=== PATIENT | female | born 1985 | race Two or more races ===

== ENCOUNTER 2024-05-18 09:48 | Outpatient (CLI) | payer OTHER | END 2024-05-18 09:51 | disposition home or self-care (01) | LOC: SONOGRAMA 09:48 | PROVIDERS: ATTEND Pathology Anatomic Pathology & Clinical Pathology | DX: C73 Malignant neoplasm of thyroid gland (principal); D34 Benign neoplasm of thyroid gland; E07.89 Other specified disorders of thyroid; E04.2 Nontoxic multinodular goiter ==

== ENCOUNTER 2024-08-11 07:30 | Inpatient (IN) | payer OTHER ==
[~2024-08-11] VITALS: Ht 175.3 cm; Wt 63.0 kg
[2024-08-11] MEDS ORDERED: TEGRETOL200 MG PO (09:08)
[2024-08-11] MEDS ORDERED: METHIMAZOLE PO (09:12)
[2024-08-11] MEDS ORDERED: HORIZANT300 MG PO (09:12)
[2024-08-11] MEDS ORDERED: MOTRIN IB200 M1 PO (09:12)
[2024-08-11] MEDS ORDERED: D3-501250 MCG PO (09:13)
[2024-08-11 09:42] LABS: HEMATOCRIT 39.8 % (36.0-45.00); HEMOGLOBIN 13.4 g/dL (12.0-15.00); MEAN CORPUSCULAR HGB CONC 33.6 g/dl (32.0-36.0); PLATELET COUNT 228 K/uL (150-450); RED BLOOD COUNT 4.32 M/uL (4.00-6.00); RED CELL DISTRIBUTION WIDTH 13.4 % (11.5-14.5)
[2024-08-11 09:44] LABS: PH,URINE 5.5 (5.0-8.0); URINE APPEARANCE Clear; URINE BILIRRUBIN Negative (NEGATIVE); URINE BLOOD Negative; URINE COLOR Yellow; URINE GLUCOSE Negative (NEGATIVE); URINE KETONE Negative (NEGATIVE); URINE LEUKOCYTE Negative; URINE NITRATE Negative; URINE PROTEIN Negative (NEGATIVE); URINE UROBILINOGEN 0.2 E.U./dl
[2024-08-11 09:49] LABS: URINE BACTERIA 5067.4 uL (0.0-1933); URINE EPITHELIAL CELLS 28.9 uL (0.0-38.8); URINE RBC 14.8 uL (0.0-20.8); URINE WBC 13.1 uL (0.0-23.2)
[2024-08-11 10:17] LABS: INR 1.11; PARTIAL THROMBOPLASTIN TIME 29.6 SECONDS (22.0-34.0)
[2024-08-11 10:28] LABS: ALBUMIN 3.9 gm/dL (3.4-5.0); BILIRUBIN TOTAL 0.29 mg/dL (0.3-1.2); CALCIUM 9.1 mg/dL (8.5-10.1); CREATININE SERUM 0.63 mg/dL (0.55-1.02); GFR 104.66; POTASSIUM 3.94 mEq/L (3.5-5.1); TOTAL PROTEIN 6.9 gm/dL (6.4-8.2)
[2024-08-17] MEDS ORDERED: DEXAMETHASONE SODIUM PHOSPHATE 4 MG/ML VIAL IV ONE (14:00)
[2024-08-17] MEDS ORDERED: CEFAZOLIN SODIUM 1,000 MG VIAL IV ONE (14:00)
[2024-08-17] MEDS ORDERED: ONDANSETRON HCL 2 MG/ML VIAL IV PRN (15:00)
[2024-08-17] MEDS ORDERED: ENALAPRILAT DIHYDRATE 1.25 MG/ML VIAL IV PRN (15:00)
[2024-08-17] MEDS ORDERED: MORPHINE SULFATE 4 MG/ML VIAL IV ONE ×2 (15:15→15:45)
[2024-08-17] MEDS ORDERED: CYCLOBENZAPRINE HCL 5 MG TABLET PO SCH (17:00)
[2024-08-17] MEDS ORDERED: TRAMADOL HCL 50 MG TABLET PO SCH (17:00)
[2024-08-17] MEDS ORDERED: GABAPENTIN 300 MG CAPSULE PO SCH (17:00)
[2024-08-17] MEDS ORDERED: ACETAMINOPHEN 500 MG GEL..CAP PO SCH (17:00)
[2024-08-17] MEDS ORDERED: PANTOPRAZOLE SODIUM 40 MG/VIAL VIAL IV PUSH SCH (21:00)
[2024-08-17 22:22] VITALS: BP 130/69; O2SAT 97
[2024-08-18 00:44] VITALS: BP 122/65; O2SAT 95
[2024-08-18] MEDS ORDERED: MORPHINE SULFATE 4 MG/ML VIAL IV PRN (01:45)
[2024-08-18] MEDS ORDERED: CARBAMAZEPINE 200 MG TABLET PO SCH (09:00)
[2024-08-18 10:36] VITALS: BP 116/72; O2SAT 98
== END 2024-08-18 13:26 | disposition home or self-care (01) | DRG 627 ==
LOC: O/R 08-17 07:10 → SURH 08-17 07:30
PROVIDERS: ADMIT Otolaryngology; ATTEND Otolaryngology
PROC: 0GTH0ZZ Resection of Right Thyroid Gland Lobe, Open Approach (ICD-10-PCS; principal; 2024-08-17 11:00)
DX: C73 Malignant neoplasm of thyroid gland (principal); Z20.822 Contact with and (suspected) exposure to COVID-19

== ENCOUNTER 2024-08-17 09:44 | Outpatient (CLI) | payer OTHER ==
[~2024-08-17 09:44] MED LIST: D3-501250 MCG PO; HORIZANT300 MG PO; METHIMAZOLE PO; MOTRIN IB200 M1 PO; TEGRETOL200 MG PO
[2024-08-17 10:58] LABS: INR 1.1; PARTIAL THROMBOPLASTIN TIME 28.9 SECONDS (22.0-34.0); PROTHROMBIN TIME 11.9 SECONDS (9.0-11.5)
== END 2024-08-17 15:23 | disposition home or self-care (01) ==
LOC: LAB 09:44
PROVIDERS: ATTEND Otolaryngology
DX: D68.9 Coagulation defect, unspecified (principal)